=== PATIENT | male | born 1985 | race Caucasian/White ===

== ENCOUNTER 2022-10-28 23:06 | Emergency (ER) | payer MEDICAID ==
[~2022-10-28] VITALS: Ht 182.9 cm; Wt 68.2 kg
[2022-10-29 00:02] VITALS: BP 150/96
== END 2022-10-29 00:40 ==
LOC: ER 23:07
DX: S01.00XA Unspecified open wound of scalp, initial encounter (principal); Y04.0XXA Assault by unarmed brawl or fight, initial encounter; Y93.89 Activity, other specified; Y92.89 Other specified places as the place of occurrence of the external cause; Y99.8 Other external cause status
CPT/HCPCS: 99283; A6449